=== PATIENT | male | born 1995 | race Caucasian/White ===

== ENCOUNTER 2017-03-03 15:38 | Emergency (ER) | payer OTHER ==
[2017-03-03] MEDS ORDERED: Sodium Chloride 0.9% 1,000 ML IV ONE (16:28)
[2017-03-03] MEDS ORDERED: Sodium Chloride 0.9% 1,000 ML ONE (16:33)
[2017-03-03 16:43] LABS: BASO % 0.2 % (0.0-2.0); EOS % 0.1 % (0.0-4.0); HEMATOCRIT 46.2 % (35.0-51.0); LYMPH # 1.1 K/uL (1.0-4.3); LYMPH % 12.4 % (20.0-40.0); MEAN CELL VOLUME 88.7 fL (80.0-94.0); MEAN CORPUSCULAR HEMOGLOBIN 30.5 pg (27.0-31.0); MEAN CORPUSCULAR HGB CONC 34.3 g/dL (33.0-37.0); MEAN PLATELET VOLUME 7.8 fL (7.2-11.7); MONO % 11.9 % (0.0-10.0); NRBC % 0.2 % (0.0-2.0); RED CELL DISTRIBUTION WIDTH 12.9 % (11.5-14.5); WHITE BLOOD COUNT 8.5 K/uL (4.8-10.8)
[2017-03-03 16:48] LABS: RBC URINE 1 /hpf (0-3); TRANSITIONAL EPITHIAL < 1 /hpf (0-3); URINE BACTERIA RARE (<OCC); URINE BILIRUBIN NEGATIVE (NEGATIVE); URINE BLOOD NEGATIVE (NEGATIVE); URINE COLOR Yellow (YELLOW); URINE GLUCOSE (UA) NORMAL (Normal); URINE KETONE 1+ mg/dL (NEGATIVE); URINE LEUKOCYTE ESTERASE NEG Leu/uL (Negative); URINE PROTEIN NEGATIVE (NEGATIVE); URINE UROBILINOGEN NORMAL mg/dL (0.2-1.0); WBC URINE < 1 /hpf (0-5)
[2017-03-03 16:50] LABS: CHLORIDE 100 mmol/L (98-107)
[2017-03-03 16:51] LABS: SODIUM 140 mmol/L (132-148)
[2017-03-03 16:52] LABS: POTASSIUM 3.9 mmol/L (3.6-5.2)
[2017-03-03 16:54] LABS: ALB/GLOB RATIO 1.4 (1.0-2.1); ALKALINE PHOSPHATASE 86 U/L (38-126); ALT/SGPT 35 U/L (21-72); AST/SGOT 33 U/L (17-59); BLOOD UREA NITROGEN 15 mg/dL (9-20); CALCIUM 9.9 mg/dl (8.6-10.4); CARBON DIOXIDE 25 mmol/L (22-30); GFR AFRICAN-AMERICAN > 60; GLUCOSE,RANDOM 93 mg/dL (75-110); TOTAL PROTEIN 8.2 g/dL (6.3-8.3)
--- NOTE | 2017-03-03 17:05 | C.PDOC ---
History Of Present Illness 21 y/o male, with no known pmhx, presents for evaluation of nausea, vomiting, and diarrhea associated with lower back pain since yesterday. Patient reports 5 episodes of watery diarrhea and 2 episodes of vomiting. Pt reports subjective fever, (+) appetite " was afraid to eat today", admits, was able tolerate liquid today. Denies sick contacts, recent travel, high fever, headache, dizziness, neck pain, sore throat, cough, chest pain, SOB, denies abdominal pain , hematemesis, melena, hematoschezia, back pain, UTi sx. Ambulate to Ed for evaluation, not in any apparent distress. Time Seen by Provider: 03/03/17 16:08 Chief Complaint (Nursing): GI Problem History Per: Patient History/Exam Limitations: no limitations Onset/Duration Of Symptoms: Days Current Symptoms Are (Timing): Still Present Associated Symptoms: Fever (subjective), Nausea, Vomiting, Diarrhea. denies: Constipation, Urinary Symptoms Recent travel outside of the [place]: No Past Medical History Reviewed: Historical Data, Nursing Documentation, Vital Signs Vital Signs: Last Vital Signs Temp 98.7 F 03/03/17 19:04 Pulse 66 03/03/17 19:04 Resp 14 03/03/17 19:04 BP 104/50 L 03/03/17 19:04 Pulse Ox 99 03/03/17 19:04 - Medical History PMH: No Chronic Diseases Family History: States: Unknown Family Hx - Social History Hx Alcohol Use: No Hx Substance Use: No Review Of Systems Except As Marked, All Systems Reviewed And Found Negative. Constitutional: Positive for: Fever (subjective). Negative for: Chills ENT: Negative for: Throat Pain Cardiovascular: Negative for: Chest Pain, Palpitations Respiratory: Negative for: Cough, Shortness of Breath, Sputum, Wheezing Gastrointestinal: Positive for: Nausea, Vomiting, Diarrhea Genitourinary: Negative for: Dysuria Skin: Negative for: Rash Neurological: Negative for: Headache, Dizziness Physical Exam - Physical Exam Appears: Non-toxic, No Acute Distress Skin: Normal Color, Warm, Dry, No Rash Head: Normacephalic Eye(s): bilateral: PERRL Nose: Normal Oral Mucosa: Moist Tongue: Normal Appearing Lips: Normal Appearing Throat: No Erythema, No Exudate, No Drooling Neck: Normal ROM, Supple, Other ((-) meningeal sign) Chest: Symmetrical Cardiovascular: Rhythm Regular, No Murmur, No JVD Respiratory: Normal Breath Sounds, No Rales, No Rhonchi, No Wheezing Gastrointestinal/Abdominal: Soft, No Tenderness, No Organomegaly, No Distention , No Guarding, No Rebound Back: No CVA Tenderness, No Vertebral Tenderness, Paraspinal Tenderness ( diffuse lumbar), No Straight Leg Raising Extremity: No Pedal Edema, Capillary Refill (< 2 sec.), No Deformity Extremity: Bilateral: Normal Color And Temperature Neurological/Psych: Oriented x3, Normal Speech, Normal Cognition ED Course And Treatment - Laboratory Results Result Diagrams: 03/03/17 16:37 03/03/17 16:37 Lab Interpretation: Normal O2 Sat by Pulse Oximetry: 100 (RA) Pulse Ox Interpretation: Normal Progress Note: Pepcid, Zofran, IVFs. Labs and urinalysis ordered, reviewed. On re-evaluation, pt is afebrile, hemodynamicaly stable. Non-toxic. Tolerate PO well in ED. PulsEOx 99% RA. ENT: no acute findings. Lungs: CTA B/L, BS equal B/L. CVS: (+)S1S2, reg. Abd: benign, (-) guarding, (-) rebound. Back: (-) CVA tenderness. Diagnostics review and appears noraml. Pt has clinical findings c/w back pain, N/V/D r/o viral illness. Pt advised. ref. to f/u with PMD in 1-2 days for re-eavl. Pt advised OBS for any sign of appendicitis- return to ed immediately for re-evaluation. Pt udnerstand, stable for discharge now. Disposition Counseled Patient/Family Regarding: Studies Performed, Diagnosis, Need For Followup, Rx Given - Disposition Disposition: HOME/ ROUTINE Disposition Time: 18:33 Condition: STABLE Additional Instructions: Encourage fluids Take medication as prescribed Diet restriction for 1-2 days Follow up with PMD in 2-3 days for re-evaluation. Return to ED if any worsening or new changes. Prescriptions: Famotidine [Pepcid] 20 mg PO BID #10 tab Sucralfate [Carafate] 1 gm PO TID #20 tablet Instructions: Acute Nausea and Vomiting (ED), Acute Diarrhea (ED) Forms: [employer] (Palestinian) Print Language: SINHALA - Clinical Impression Clinical Impression: Vomiting, Diarrhea - PA / CLINICAL RECRUITER / Resident Statement MD/DO has reviewed & agrees with the documentation as recorded. - Scribe Statement The provider has reviewed the documentation as recorded by the Patrickibsweetie Cline All medical record entries made by the Maura were at my direction and personally dictated by me. I have reviewed the chart and agree that the record accurately reflects my personal performance of the history, physical exam, medical decision making, and the department course for this patient. I have also personally directed, reviewed, and agree with the discharge instructions and disposition.
[2017-03-03 19:05] VITALS: BP 104/50; PULSE 66; RESP 14; TEMP 98.7
[2017-03-04 10:00] VITALS: O2SAT 100
== END 2017-03-03 19:14 | disposition home or self-care (01) ==
LOC: C.ER 15:38
DX: R11.10 Vomiting, unspecified (principal); R19.7 Diarrhea, unspecified
CPT/HCPCS: 80053; 81001; 83690; 85025; 96361; 96374; 96375; 99285; J1885; J2405; J7040